=== PATIENT | female | born 1960 | race Caucasian/White ===

== ENCOUNTER 2018-08-28 22:03 | Emergency (ER) | payer OTHER ==
[~2018-08-28] VITALS: Ht 165.1 cm; Wt 100.7 kg
[~2018-08-28 22:03] MED LIST: ACET-8386 PO; ASPI-1718 PO; CHOL20001 PO; COZ50 PO; FOLI1TAB19 PO; GABA300C PO; GLIM2TAB PO; HYDR200T5 PO; METF1000 PO; METF500T PO; PARO30TA22 PO
[2018-08-28 22:10] VITALS: BP 106/67
--- NOTE | 2018-08-28 22:15 | NUR ---
TO LOBBY A/W BED AMBULATORY
--- NOTE | 2018-08-28 22:38 | NUR ---
57 Y/O FEMALE PRESENTED TO ED C/O RIGHT ANKL PAIN X3 DAYS. PT STATES WALKING TO CAR, STEPPED IN HOLE AND INVERTED RIGHT ANKLE. 2+ NON-PITTING EDEMA, BRUISING, 9/10 PAIN. CMS INTACT BILAT LOWER EXTREITIES. ER MD AWARE. CONTINUE TO MONITOR.
--- NOTE | 2018-08-28 22:38 | NUR ---
PT AMBULATED TO ER BED 12
[2018-08-28] MEDS ORDERED: KETOROLAC 30 MG/ML VIAL IM ONE (23:10)
[2018-08-28 23:40] VITALS: BP 110/64
--- NOTE | 2018-08-28 23:40 | NUR ---
Patient discharged with v/s stable. Written and verbal after care instructions given and explained. Patient verbalized understanding. Ambulatory with steady gait. All questions addressed prior to discharge. Advised to follow up with PMD.
== END 2018-08-28 23:40 | disposition home or self-care (01) ==
LOC: MED 22:03
DX: S93.401A Sprain of unspecified ligament of right ankle, initial encounter (principal); E11.9 Type 2 diabetes mellitus without complications; M06.9 Rheumatoid arthritis, unspecified; Z88.2 Allergy status to sulfonamides; Z79.82 Long term (current) use of aspirin; Z79.891 Long term (current) use of opiate analgesic; Z79.84 Long term (current) use of oral hypoglycemic drugs; Z79.899 Other long term (current) drug therapy; Z90.49 Acquired absence of other specified parts of digestive tract; Z90.710 Acquired absence of both cervix and uterus; Z88.5 Allergy status to narcotic agent; X50.1XXA Overexertion from prolonged static or awkward postures, initial encounter; Y93.89 Activity, other specified; Y92.89 Other specified places as the place of occurrence of the external cause; Y99.8 Other external cause status
CPT/HCPCS: 73630; 96372; 99283; J1885